=== PATIENT | male | born 1980 | race Caucasian/White ===

== ENCOUNTER 2019-05-11 14:04 | Emergency (ER) | payer MEDICAID ==
[~2019-05-11] VITALS: Ht 182.9 cm; Wt 81.0 kg
[2019-05-11] MEDS ORDERED: LORazepam 1 MG tablet PO ONE (15:00)
[2019-05-11] MEDS ORDERED: haloperidol lactate 5mg/ml inj IM ONE (15:00)
[2019-05-11] MEDS ORDERED: haloperidol 5mg tablet PO ONE (15:20)
[2019-05-11 15:31] LABS: BASOPHILS # (AUTO) 0.1 X10'3 (0-0.2); BASOPHILS % (AUTO) 0.7 % (0-1); EOSINOPHILS # (AUTO) 0.1 X10'3 (0-0.9); EOSINOPHILS % (AUTO) 0.9 % (0-6); HEMATOCRIT 47.2 % (42.0-52.0); HEMOGLOBIN 16.5 g/dl (14.0-17.9); LYMPHOCYTES # (AUTO) 2.5 X10'3 (1.1-4.8); LYMPHOCYTES % (AUTO) 27.1 % (21-51); MEAN CORPUSCULAR HEMOGLOBIN 31.4 PG (27.0-31.0); MEAN CORPUSCULAR HGB CONC 34.9 g/dL (33.0-36.5); MEAN PLATELET VOLUME 7.7 FL (7.4-10.4); MONOCYTES # (AUTO) 0.7 X10'3 (0-0.9); MONOCYTES % (AUTO) 7.5 % (2-12); NEUTROPHILS # (AUTO) 5.8 X10'3 (1.8-7.7); NEUTROPHILS % (AUTO) 63.8 % (42-75); PLATELET COUNT 283 X10'3 (140-440); RED BLOOD COUNT 5.25 X10'6 (4.70-6.10); RED CELL DISTRIBUTION WIDTH 13.7 % (11.5-14.5); WHITE BLOOD COUNT 9.2 X10'3 (4.5-11.0)
[2019-05-11 15:41] LABS: CLARITY,URINE CLEAR (Clear); COLOR,URINE STRAW (Yellow); GLUCOSE, URINE NEGATIVE (Neg); KETONES,URINE NEGATIVE (Neg); LEUKOCYTE ESTERASE ,URINE NEGATIVE (Neg); NITRITES, URINE NEGATIVE (Neg); OCCULT BLOOD,URINE NEGATIVE (Neg); PROTEIN,URINE NEGATIVE (Neg); UROBILINOGEN,URINE 0.2 E.U/dL (0.2-1.0)
[2019-05-11 15:46] LABS: UA COLLECTION TYPE CLN CATCH MIDSTREAM
[2019-05-11 15:47] LABS: ALANINE AMINOTRANSFERASE 45 U/L (12-78); ALBUMIN 4.4 G/DL (3.4-5.0); ALBUMIN/GLOBULIN RATIO 1.3 (1.1-1.5); ALKALINE PHOSPHATASE 82 IU/L (46-116); ANION GAP 9 (8-16); ASPARTATE AMINO TRANSFERASE 22 U/L (10-37); BILIRUBIN,TOTAL 0.2 MG/DL (0.1-1.0); BLOOD UREA NITROGEN 10 MG/DL (7-18); BUN/CREATININE RATIO 8.8 (5.4-32.0); CALCIUM 9.2 MG/DL (8.5-10.1); CHLORIDE 106 MMOL/L (99-107); CREATININE 1.14 MG/DL (0.60-1.10); GLUCOSE 93 MG/DL (70-104); SODIUM 143 MMOL/L (135-145); TOTAL CARBON DIOXIDE 28.2 MMOL/L (24-32); TOTAL PROTEIN 7.9 G/DL (6.4-8.2); eGFR 72 ML/MIN
[2019-05-11 15:52] LABS: URINE AMPHETAMINE SCREEN NEGATIVE (Neg); URINE BARBITUATE SCREEN NEGATIVE (Neg); URINE BENZODIAZEPINES SCREEN NEGATIVE (Neg); URINE CANNABINOID SCREEN POSITIVE (Neg); URINE COCAINE SCREEN NEGATIVE (Neg); URINE METHADONE SCREEN NEGATIVE (Neg); URINE OPIATE SCREEN NEGATIVE (Neg); URINE PHENCYCLIDINE SCREEN NEGATIVE (Neg)
[2019-05-11 15:57] LABS: ETHANOL < 0.010 GM/DL (0.0-0.010)
[2019-05-11] MEDS ORDERED: NO HOME MEDS (16:07)
--- NOTE | 2019-05-11 16:09 | NUR ---
PACKET FAXED TO [facility]
--- NOTE | 2019-05-11 16:58 | NUR ---
Patient's speech is tangential, unable to follow thought process. When asked about hearing voices he grabs his head and says "I just need to put this back together". Offered PO meds to assist him in remaining calm, which he agreed to take. Has been resting quietly since adminstration of meds.
--- NOTE | 2019-05-12 00:39 | NUR ---
relieving RN for break, pt is up at bedside, drinking water, calm and cooperative
--- NOTE | 2019-05-12 01:01 | NUR ---
Pt. restless and accusing staff that he was being spoken about in inappropriate manner. Spoke with pt. re his anxiety and he confirms that he is having difficulty sleeping. Pt. states that he is open to receving medication at this time. Dr. Cardoza made aware of pt's status and will write order for zyprexa 10mg x1.
[2019-05-12] MEDS ORDERED: olanzapine 10mg tablet PO ONE (01:05)
--- NOTE | 2019-05-12 12:47 | NUR ---
Basia from the [facility] office called. Pt was excepted at [facility]. The local delivery truck driver will be here to pick the pt up at 1330
[2019-05-12 13:40] VITALS: BP 122/77
== END 2019-05-12 13:43 ==
LOC: ER 14:04
DX: F20.9 Schizophrenia, unspecified (principal); F12.90 Cannabis use, unspecified, uncomplicated; Z98.890 Other specified postprocedural states
CPT/HCPCS: 36415; 80053; 80305; 80320; 81003; 84443; 85025; 99285

== ENCOUNTER 2020-01-13 12:24 | Emergency (ER) | payer MEDICAID ==
[~2020-01-13] VITALS: Ht 182.9 cm; Wt 84.1 kg
[~2020-01-13 12:24] MED LIST: NO HOME MEDS
[2020-01-13] MEDS ORDERED: diphenhydrAMINE 50 mg/ml inj IM ONE (12:35)
[2020-01-13] MEDS ORDERED: haloperidol lactate 5mg/ml inj IM ONE (12:35)
[2020-01-13] MEDS ORDERED: LORazepam 2 mg/ml vial IM ONE (12:35)
--- NOTE | 2020-01-13 12:51 | NUR ---
removed hand cuffs. Pt escalating, combative with care. paul, 2 security guards held pt down to administer im medication, to calm pt down. See mar. pt placed in restraints.
[2020-01-13 13:29] LABS: BASOPHILS % (AUTO) 0.3 % (0-1); EOSINOPHILS % (AUTO) 0.2 % (0-6); HEMATOCRIT 47.4 % (42.0-52.0); HEMOGLOBIN 16.1 g/dl (14.0-17.9); LYMPHOCYTES # (AUTO) 2.1 X10'3 (1.1-4.8); LYMPHOCYTES % (AUTO) 20.4 % (21-51); MEAN CORPUSCULAR HEMOGLOBIN 30.8 PG (27.0-31.0); MEAN CORPUSCULAR VOLUME 90.6 FL (78-98); MEAN PLATELET VOLUME 7.6 FL (7.4-10.4); MONOCYTES # (AUTO) 0.9 X10'3 (0-0.9); MONOCYTES % (AUTO) 8.4 % (2-12); NEUTROPHILS # (AUTO) 7.3 X10'3 (1.8-7.7); NEUTROPHILS % (AUTO) 70.7 % (42-75); PLATELET COUNT 303 X10'3 (140-440); RED BLOOD COUNT 5.23 X10'6 (4.70-6.10); RED CELL DISTRIBUTION WIDTH 13.5 % (11.5-14.5); WHITE BLOOD COUNT 10.3 X10'3 (4.5-11.0)
[2020-01-13 13:43] LABS: ALANINE AMINOTRANSFERASE 56 U/L (12-78); ALBUMIN 4.3 G/DL (3.4-5.0); ALBUMIN/GLOBULIN RATIO 1.2 (1.1-1.5); ALKALINE PHOSPHATASE 83 IU/L (46-116); ANION GAP 15 (8-16); ASPARTATE AMINO TRANSFERASE 30 U/L (10-37); BILIRUBIN,TOTAL 0.4 MG/DL (0.1-1.0); BLOOD UREA NITROGEN 15 MG/DL (7-18); BUN/CREATININE RATIO 11.2 (5.4-32.0); CALCIUM 9.5 MG/DL (8.5-10.1); CHLORIDE 104 MMOL/L (99-107); CREATININE 1.34 MG/DL (0.60-1.10); GLUCOSE 116 MG/DL (70-104); POTASSIUM 3.8 MMOL/L (3.5-5.1); SODIUM 142 MMOL/L (135-145); TOTAL CARBON DIOXIDE 23.1 MMOL/L (24-32); TOTAL PROTEIN 7.9 G/DL (6.4-8.2); eGFR 59 ML/MIN
[2020-01-13 13:53] LABS: ETHANOL < 0.010 GM/DL (0.0-0.010)
[2020-01-13 17:05] LABS: URINE AMPHETAMINE SCREEN NEGATIVE (Neg); URINE BARBITUATE SCREEN NEGATIVE (Neg); URINE BENZODIAZEPINES SCREEN NEGATIVE (Neg); URINE CANNABINOID SCREEN POSITIVE (Neg); URINE COCAINE SCREEN NEGATIVE (Neg); URINE METHADONE SCREEN NEGATIVE (Neg); URINE OPIATE SCREEN NEGATIVE (Neg); URINE PHENCYCLIDINE SCREEN NEGATIVE (Neg)
[2020-01-13] MEDS ORDERED: LORazepam 1 MG tablet PO ONE (17:30)
--- NOTE | 2020-01-13 19:15 | NUR ---
PACKET FAXED TO [facility]ICE, [facility]ICE AWARE AND WILL CALL BACK IF THEY DO NOT RECEIVE PACKET
--- NOTE | 2020-01-13 19:41 | NUR ---
[facility] AT BEDSIDE EVALUATING PT.
--- NOTE | 2020-01-13 21:20 | NUR ---
madison from [facility] called and given info on pt.
--- NOTE | 2020-01-13 21:46 | NUR ---
RINA FROM [facility] CALLED AND THEY HAVE ACCEPTED PT. WILL BE PICKING HIM UP TOMORROW MORNING AT 0830. THEY ARE REQUESTING IF WE CAN GIVE A DOSE OF ATIVAN PRIOR TO DISCHARGE SO HE WONT ENDANGER OTHERS WHEN PT GETS TO [facility].
[2020-01-13 21:59] LABS: CLARITY,URINE CLEAR (Clear); COLOR,URINE YELLOW (Yellow); GLUCOSE, URINE NEGATIVE (Neg); KETONES,URINE NEGATIVE (Neg); LEUKOCYTE ESTERASE ,URINE NEGATIVE (Neg); NITRITES, URINE NEGATIVE (Neg); OCCULT BLOOD,URINE NEGATIVE (Neg); PH,URINE 6.5 (4.8-8.0); PROTEIN,URINE 30 mg/dl (Neg); UROBILINOGEN,URINE 0.2 E.U/dL (0.2-1.0)
[2020-01-13 22:07] LABS: UA COLLECTION TYPE CLN CATCH MIDSTREAM
[2020-01-13 22:09] LABS: BACTERIA,URINE NONE SEEN /HPF (Neg); CAL OXALATE CRYSTALS FEW /HPF (NEGATIVE); RBC,URINE NONE SEEN /HPF (0-2); SQUAMOUS EPITHELIAL CELL,UR FEW /LPF (FEW); WBC,URINE NONE SEEN /HPF (0-4)
--- NOTE | 2020-01-13 23:18 | NUR ---
PT SLEEPING QUIETLY NO ACUTE DISTRESS NOTED AT THIS TIME.
[2020-01-14] MEDS ORDERED: LORazepam 1 MG tablet PO ONE ×2 (00:25→01:35)
--- NOTE | 2020-01-14 00:25 | NUR ---
PT AWAKE PACING, SLIGHTLY AGITATED. INFORMED DR. LEDBETTER. RECEIVED ATIVAN ORDER.
--- NOTE | 2020-01-14 01:19 | NUR ---
PT SLEEPING QUIETLY. ATIVAN EFFECTIVE
[2020-01-14] MEDS ORDERED: LORazepam 1 MG tablet PO PRN (01:25)
--- NOTE | 2020-01-14 03:15 | NUR ---
assumed care of pt from Aixa MOORE, pt is sleeping on bed
--- NOTE | 2020-01-14 04:38 | NUR ---
pt continues to sleep
[2020-01-14 05:36] VITALS: BP 139/93
--- NOTE | 2020-01-14 05:42 | NUR ---
pt amb with steady gait to restroom
--- NOTE | 2020-01-14 06:00 | NUR ---
pt is pacing around. pt very pleasant and cooperative
--- NOTE | 2020-01-14 07:00 | NUR ---
pt laying in his bed
--- NOTE | 2020-01-14 08:05 | NUR ---
pt is eating breakfast
== END 2020-01-14 08:49 ==
LOC: ER 12:24
DX: F30.9 Manic episode, unspecified (principal); F20.9 Schizophrenia, unspecified; Z98.890 Other specified postprocedural states; Y09 Assault by unspecified means
CPT/HCPCS: 36415; 80053; 80305; 80320; 81001; 84443; 85025; 96372; 99285; J1200; J1630; J2060